=== PATIENT | female | born 1990 | race Caucasian/White ===

== ENCOUNTER 2017-01-18 13:00 | Emergency (ER) | payer OTHER ==
[~2017-01-18] VITALS: Ht 160 cm; Wt 55.8 kg
--- NOTE | 2017-01-18 13:20 | NUR ---
Michelle willson in [facility] - 01/18/17 at 1336 by [id number] MSE DONE BY DR WHEAT AT [facility] 03A.
--- NOTE | 2017-01-18 13:20 | NUR ---
MSE DONE BY DR WHEAT AT BEDSIDE ROOM 03A.
--- NOTE | 2017-01-18 14:05 | NUR ---
DR WHEAT MADE PATIENT AWARE OF TEST RESULTS.
--- NOTE | 2017-01-18 14:13 | NUR ---
Patient discharged to home in stable conditon. Written and verbal after care instructions given. Patient verbalizes understanding of instructions.
== END 2017-01-18 14:22 | disposition home or self-care (01) ==
LOC: ER 13:00
DX: J02.9 Acute pharyngitis, unspecified (principal)
CPT/HCPCS: 36415; 86403; 87070; 87077; 99284; A4663

== ENCOUNTER 2019-08-04 12:11 | Emergency (ER) | payer OTHER ==
[~2019-08-04] VITALS: Ht 162.6 cm; Wt 63.5 kg
--- NOTE | 2019-08-04 12:46 | NUR ---
PT WAS EVALUATED BY DR SHETTY. PT WAS D/C'D TO HOME. D/C INSTRUCTIONS GIVEN TO THE PT.
[2019-08-04 13:03] VITALS: BP 111/69
== END 2019-08-04 13:04 | disposition home or self-care (01) ==
LOC: ER 12:11
DX: J30.9 Allergic rhinitis, unspecified (principal)
CPT/HCPCS: A4663